=== PATIENT | male | born 1955 | race African-American/Black ===

== ENCOUNTER 2016-06-14 11:32 | Emergency (ER) | payer OTHER ==
[~2016-06-14] VITALS: Ht 177.8 cm; Wt 77.1 kg
[2016-06-14] MEDS ORDERED: LANTUS SOL100 UNIT/1 SUBQ (11:55)
[2016-06-14] MEDS ORDERED: METFORMIN HCL1000 M1 ORAL (11:55)
[2016-06-14 12:00] VITALS: BP 134/85
[2016-06-14] MEDS ORDERED: Ketorolac 60mg Inj IM ONE (12:45)
[2016-06-14] MEDS ORDERED: IBUPROFEN600 MG ORAL (12:54)
[2016-06-14] MEDS ORDERED: ROBAXIN500 MG PO (12:54)
--- NOTE | 2016-06-14 12:54 | Emergency Room Report ---
History of Present Illness General Chief Complaint: Pain Source: Patient Present Illness HPI 61-year-old male presents emergency department complaining of 8/10 in severity lower back pain that radiates down into the right leg in a shooting fashion. Patient states he has a history of low back problems and has had multiple episodes in the past of sciatica which respond well to soma. Patient states that he was unable to get in with his PCP who typically prescribes him his medications so he presented here in to the emergency department. Patient denies recent trauma or fall. Patient states he has had episodes with these symptoms since 2015. Patient denies recent spinal procedure or history of neoplastic disease. Denies numbness tingling or loss of sensation or gross motor movements of the extremities, incontinence of bowel or bladder. Denies CP , Palpitations, LOC, AMS, dizziness, Changes in Vision, Sensation, paresthesias , or a sudden severe headache. Allergies: Coded Allergies: No Known Allergies (Unverified , 06/14/16) Patient History Past Medical History: see triage record Past Surgical History: none Pertinent Family History: none Immunizations: UTD Reviewed Nursing Documentation: PMH: Agreed, PSxH: Agreed Nursing Documentation-PMH Past Medical History: No History, Except For Hx Diabetes: Yes Review of Systems All Other Systems: negative except mentioned in HPI Physical Exam Vital Signs Date Time Temp Pulse Resp B/P Pulse Ox O2 Delivery O2 Flow Rate FiO2 06/14/16 11:52 98.1 81 20 134/85 97 Sp02 EP Interpretation: reviewed, normal General Appearance: no apparent distress, alert, GCS 15, non-toxic Head: normocephalic, atraumatic Eyes: bilateral eye PERRL, bilateral eye normal inspection ENT: hearing grossly normal, normal pharynx, no angioedema, normal voice Neck: full range of motion, supple/symm/no masses Respiratory: chest non-tender, lungs clear, normal breath sounds, speaking full sentences Cardiovascular #1: regular rate, rhythm, no edema Gastrointestinal: no rebound Rectal: deferred Genitourinary: normal inspection, no CVA tenderness Musculoskeletal: back normal, gait/station normal, normal range of motion - with pain exacerbated with forard flexion, no calf tenderness, tender - Mild Tenderness to palpation to paraspinal muscles of the lower back, no spinous process tenderness, no midline tenderness. Neurologic: alert, oriented x3, responsive, motor strength/tone normal, sensory intact, normal gait, speech normal Psychiatric: judgement/insight normal, memory normal, mood/affect normal, no suicidal/homicidal ideation Skin: normal color, no rash, warm/dry, well hydrated Lymphatic: no adenopathy Medical Decision Making PA Attestation Dr. Ojeda is my supervising Physician whom patient management has been discussed with. Diagnostic Impression: Primary Impression: Back pain with right-sided sciatica ER Course 61-year-old male presents emergency department complaining of 8/10 in severity lower back pain that radiates down into the right leg in a shooting fashion x 7 day(s) -multiple episodes with similar sx in the past. since 2015. no new trauma or injury. Ddx considered: epidural abscess, fracture, sprain/strain, meningitis, spinal chord injury. Vital signs reviewed and are WNL during ED visit. Pt. is afebrile with no signs of infection No new symptoms, and denies recent trauma. No saddle anesthesia noted, Pt. denies incontinence Neurovascular is intact ROM is limited due to pain * Mild Tenderness to palpation to paraspinal muscles of the lower back, no spinous process tenderness, no midline tenderness. *Pt. describes pain today as moderate and radiates across the lower back, and down the right leg. ORDERS: none warranted at this time. INTERVENTIONS: - 60mg IM Toradol -350mg Soma D/W Pt. that for further pain management is it recommended to consult PCP or a Chronic Pain management doctor. A provider who can safely prescribe controlled substances with close follow up. DISCHARGE: At this time pt. is stable for d/c to home. Will provide printed patient care instructions, and any necessary prescriptions. Care plan and follow up instructions have been discussed with the patient prior to discharge. Last Vital Signs Date Time Temp Pulse Resp B/P Pulse Ox O2 Delivery O2 Flow Rate FiO2 06/14/16 12:00 98.1 81 20 134/85 97 Disposition: HOME, SELF-CARE Condition: Stable Scripts Ibuprofen* (MOTRIN*) 600 Mg Tablet 600 MG ORAL THREE TIMES A DAY, #30 TAB 0 Refills Prov: Arabella Tyson P.A. 06/14/16 Methocarbamol* (ROBAXIN*) 500 Mg Tablet 500 MG PO TID, #21 TAB 0 Refills Prov: Arabella Tyson P.A. 06/14/16 [facility]errals[facility] (PCP) Patient Instructions: Sciatica, [id number] Additional Instructions: Take medications as directed. Follow up with PCP in 3-5 days Return sooner to ED if new symptoms occur, or current symptoms become worse. Do not drink alcohol, drive, or operate heavy machinery while taking Muscle Relaxer as this may cause drowsiness. - Please note that this Emergency Department Report was dictated using Ringpaygeospatial scientist technology software, occasionally this can lead to erroneous entry secondary to interpretation by the dictation equipment. Arabella Tyson Jun 14, 2016 12:54
[2016-06-14 13:02] VITALS: BP 134/85
== END 2016-06-14 13:02 | disposition home or self-care (01) ==
LOC: EMR 12:35
DX: M54.41 Lumbago with sciatica, right side (principal); E11.9 Type 2 diabetes mellitus without complications
CPT/HCPCS: 96372; 99284

== ENCOUNTER 2016-06-28 19:50 | Emergency (ER) | payer OTHER ==
[~2016-06-28] VITALS: Ht 177.8 cm; Wt 79.4 kg
[~2016-06-28 19:50] MED LIST: IBUPROFEN600 MG ORAL; LANTUS SOL100 UNIT/1 SUBQ; METFORMIN HCL1000 M1 ORAL; ROBAXIN500 MG PO
[2016-06-28] MEDS ORDERED: Norco 10mg/325mg tab ORAL ONE (21:30)
[2016-06-28] MEDS ORDERED: Ketorolac 60mg Inj IM ONE (21:30)
[2016-06-28] MEDS ORDERED: Lidocaine 1% MPF 10mg/ml 5ml ONE (21:56)
[2016-06-28 22:23] VITALS: BP 148/53
[2016-06-28 23:57] VITALS: BP 144/54
[2016-06-29] MEDS ORDERED: NORCO 5-325 TA1 EACH ORAL (00:39)
[2016-06-29] MEDS ORDERED: BACTRIM DS TAB1 EAC1 ORAL (00:39)
[2016-06-29] MEDS ORDERED: KEFLEX500 MG ORAL (00:39)
[2016-06-29] MEDS ORDERED: IBUPROFEN600 MG ORAL (00:39)
[2016-06-29 00:57] VITALS: BP 139/72
--- NOTE | 2016-06-29 04:59 | Emergency Room Report ---
History of Present Illness General Chief Complaint: Skin Rash/Abscess Source: Patient Present Illness HPI Patient reports that he was here recently for sciatic pain Now over the past 2 days he has noticed increased firmness and fullness to the left buttock area Patient had watched the video and has tried to squeeze the area However after the discomfort persisted patient presents to the ER Denies any fevers or chills denies any difficulty with bowel movement denies any fall or trauma , Allergies: Coded Allergies: No Known Allergies (Unverified , 06/14/16) Patient History Past Medical History: see triage record Pertinent Family History: none Reviewed Nursing Documentation: PMH: Agreed, PSxH: Agreed Nursing Documentation-PMH Hx Diabetes: Yes Review of Systems All Other Systems: negative except mentioned in HPI Physical Exam Vital Signs Date Time Temp Pulse Resp B/P Pulse Ox O2 Delivery O2 Flow Rate FiO2 06/28/16 20:33 100.2 119 20 97 Room Air 06/28/16 22:23 148/53 Sp02 EP Interpretation: reviewed, normal General Appearance: well appearing, no apparent distress Head: normocephalic, atraumatic Eyes: bilateral eye EOMI, bilateral eye PERRL ENT: hearing grossly normal, normal pharynx, TMs + canals normal, uvula midline Neck: full range of motion, supple, no meningismus, no bony tend Respiratory: lungs clear, normal breath sounds, no rhonchi, no respiratory distress, no retraction, no accessory muscle use Cardiovascular #1: normal peripheral pulses, regular rate, rhythm, no edema, no gallop, no JVD, no murmur Gastrointestinal: normal bowel sounds, non tender, soft, no mass, no organomegaly, non-distended, no guarding, no hernia, no pulsatile mass, no rebound Rectal: other - Patient has area of abscess on palpation, involving the left buttock area, there is an area that gets fairly close to the perirectal region on the left side, no obvious tracking into the rectal area however, no other involvement of the scrotal or perineal area Genitourinary: no CVA tenderness Neurologic: oriented x3, responsive, logistics associate III-XII nml as tested, motor strength/ tone normal, sensory intact Psychiatric: mood/affect normal Skin: other - As above Lymphatic: normal inspection, no adenopathy Procedures Incision and Drainage Incision and Drainage : Consent: Verbal Site: Left perirectal/buttock area Blade Size: 11 I & D Procedure: betadine prep, sterile drapes applied, sterile dressing applied, gauze wick placed Wound Location: other - buttock Wound's Depth, Shape: into muscle Wound Length (cm): 1 Irrigated w/ Saline (ccs): 100 Anesthesia: 1% Lidocaine Volume Anesthetic (ccs): 5 Patient Tolerated: Well Complications: None Progress After initial incision with 11 blade, we did open several pockets of pus with forceps, there was significant discharge, after irrigation patient had packing placed into the area, and the area was just appropriately Medical Decision Making Diagnostic Impression: Primary Impression: Abscess Additional Impression: Encounter for incision and drainage procedure ER Course Patient was given IM antibiotics The area is concerning given the location and also the proximity to the perirectal area Incision and drainage was performed in the ER And the patient will have initial conservative outpatient trial I did discuss with him regarding the need for close followup, and further intervention if this does not fully resolved the problem , Last Vital Signs Date Time Temp Pulse Resp B/P Pulse Ox O2 Delivery O2 Flow Rate FiO2 06/29/16 00:57 99.2 90 20 139/72 98 Room Air Status: improved Disposition: HOME, SELF-CARE Condition: Improved Scripts Hydrocodone Bit/Acetaminophen 5-325* (NORCO 5-325*) 1 Each Tablet 1 TAB ORAL Q6H Y for For Pain, #10 TAB 0 Refills Prov: DAMON STINSON.O. 06/29/16 Ibuprofen* (MOTRIN*) 600 Mg Tablet 600 MG ORAL Q8H Y for For Pain, #30 TAB 0 Refills Prov: DAMON STINSON.O. 06/29/16 Trimethoprim/Sulfamethoxazole 160/800* (BACTRIM DS TABLET*) 1 Each Tablet 1 TAB ORAL Q12H, #14 TAB 0 Refills Prov: DAMON STINSON D.O. 06/29/16 Cephalexin* (KEFLEX*) 500 Mg Capsule 500 MG ORAL Q6H, #28 CAP 0 Refills Prov: DAMON STINSON.O. 06/29/16 Referrals: [facility] (PCP) Patient Instructions: Abscess Additional Instructions: Patient is provided with the discharge instructions notified to follow up with primary doctor in the next 2-3 days otherwise return to the er with any worsening symptoms. Please note that this report is being documented using DRAGON technology. This can lead to erroneous entry secondary to incorrect interpretation by the dictating instrument. DAMON STINSON D.O. Jun 29, 2016 04:59
== END 2016-06-29 01:00 | disposition home or self-care (01) ==
LOC: EMR 21:53
DX: L02.31 Cutaneous abscess of buttock (principal); E11.9 Type 2 diabetes mellitus without complications
CPT/HCPCS: 10060; 96372; 99284; J0696

== ENCOUNTER 2016-07-01 13:57 | Emergency (ER) | payer OTHER ==
[~2016-07-01] VITALS: Ht 177.8 cm; Wt 79.4 kg
[~2016-07-01 13:57] MED LIST changes: +BACTRIM DS TAB1 EAC1 ORAL; +KEFLEX500 MG ORAL; +NORCO 5-325 TA1 EACH ORAL
[2016-07-01 14:09] VITALS: BP 151/69
[2016-07-01] MEDS ORDERED: TYLENOL EXTRA500 MG ORAL (14:56)
--- NOTE | 2016-07-01 14:56 | Emergency Room Report ---
History of Present Illness General Chief Complaint: Skin Rash/Abscess Source: Patient Present Illness HPI 61-year-old male presents emergency department for wound recheck and that may need packing removal. pt. states provider who placed packing stated that " it may fall out on its own" Patient states he had incision and drainage of the left buttocks done 3 days ago and was told to report back for asking removal. Pt reports 7/10 pain described as swollen discomfort in the area exacerbated with sitting on wound. denies discharge denies erythema patient states he's been taking antibiotics as prescribed. Denies fevers chills or worsening of previous symptoms . Denies CP, Palpitations, LOC, AMS, dizziness, Changes in Vision, Sensation, paresthesias, or a sudden severe headache. Allergies: Coded Allergies: No Known Allergies (Unverified , 06/14/16) Patient History Past Medical History: see triage record Past Surgical History: none Pertinent Family History: none Immunizations: UTD Reviewed Nursing Documentation: PMH: Agreed, PSxH: Agreed Nursing Documentation-PMH Past Medical History: No History, Except For Hx Diabetes: Yes Review of Systems All Other Systems: negative except mentioned in HPI Physical Exam Vital Signs Date Time Temp Pulse Resp B/P Pulse Ox O2 Delivery O2 Flow Rate FiO2 07/01/16 14:09 98.1 80 16 151/69 99 Room Air Sp02 EP Interpretation: reviewed, normal General Appearance: no apparent distress, alert, GCS 15, non-toxic Head: normocephalic, atraumatic Eyes: bilateral eye PERRL, bilateral eye normal inspection ENT: hearing grossly normal, normal pharynx, no angioedema, normal voice Neck: full range of motion, supple/symm/no masses Respiratory: lungs clear, normal breath sounds, speaking full sentences Cardiovascular #1: regular rate, rhythm, no edema Gastrointestinal: non tender, soft, no guarding, no rebound Rectal: deferred Musculoskeletal: back normal, gait/station normal, normal range of motion, non- tender, no calf tenderness Neurologic: alert, oriented x3, responsive, motor strength/tone normal, sensory intact, speech normal Psychiatric: judgement/insight normal, memory normal, mood/affect normal, no suicidal/homicidal ideation Skin: normal color, no rash, warm/dry, well hydrated, wd healing/no infection noted - no evidence of wound packing. Lymphatic: no adenopathy Medical Decision Making PA Attestation Dr. Negro is my supervising Physician whom patient management has been discussed with. Diagnostic Impression: Primary Impression: Encounter for wound re-check ER Course Pt. presents to the ED c/o wound re-evaluation that may need packing removal. pt. states provider who placed packing stated that " it may fall out on its own " .... Ddx considered but are not limited to cellulitis, abscess, cystic acne, necrotizing fasciitis, insect bite. Vital signs: are WNL, pt. is afebrile H&PE are most consistent with healing previouisly incised abscess. ORDERS: none required at this time, the diagnosis is clinical ED INTERVENTIONS: -Toradol IM -wound packing is not present, d/w pt that packing has already been removed. -Sterile dressing applied. d/w pt. to continue taking po abx and to look for signs of infection . DISCHARGE: At this time pt. is stable for d/c to home. Will provide printed patient care instructions, and any necessary prescriptions. Care plan and follow up instructions have been discussed with the patient prior to discharge. Last Vital Signs Date Time Temp Pulse Resp B/P Pulse Ox O2 Delivery O2 Flow Rate FiO2 07/01/16 14:09 98.1 76 16 151/69 99 Room Air Disposition: HOME, SELF-CARE Condition: Stable Scripts Acetaminophen* (TYLENOL EXTRA STRENGTH*) 500 Mg Tablet 500 MG ORAL Q8H, #30 TAB 0 Refills Prov: Arabella Tyson 07/01/16 Patient Instructions: Wound Check Additional Instructions: Take previously prescribed medications as directed. Follow up with PCP in 3-5 days Return sooner to ED if new symptoms occur, or current symptoms become worse. - Please note that this Emergency Department Report was dictated using Grabilityteacher dramatics technology software, occasionally this can lead to erroneous entry secondary to interpretation by the dictation equipment. Arabella Tyson Jul 01, 2016 14:55
[2016-07-01] MEDS ORDERED: Ketorolac 60mg Inj IM ONE (15:00)
[2016-07-01 15:10] VITALS: BP 151/69
== END 2016-07-01 15:10 | disposition home or self-care (01) ==
LOC: EMR 14:25
DX: L02.31 Cutaneous abscess of buttock (principal); Z48.01 Encounter for change or removal of surgical wound dressing; E11.9 Type 2 diabetes mellitus without complications
CPT/HCPCS: 96372; 99283

== ENCOUNTER 2016-11-24 03:24 | Emergency (ER) | payer OTHER ==
[~2016-11-24] VITALS: Ht 177.8 cm; Wt 82.6 kg
[~2016-11-24 03:24] MED LIST changes: +TYLENOL EXTRA500 MG ORAL
[2016-11-24 03:30] VITALS: BP 166/75
[2016-11-24] MEDS ORDERED: BACTRIM DS TAB1 EAC1 ORAL (03:52)
[2016-11-24] MEDS ORDERED: KEFLEX500 MG ORAL (03:52)
[2016-11-24] MEDS ORDERED: Ketorolac 60mg Inj IM ONE (04:00)
[2016-11-24 04:07] VITALS: BP 166/70
--- NOTE | 2016-11-24 04:07 | Emergency Room Report ---
History of Present Illness General Chief Complaint: Skin Rash/Abscess Source: Patient Present Illness HPI 61YOM [employer] patient with "ball under my left buttock" for 2-3 days. States had abscess there previously Wants it "cut open again." Denies fever/chills, rectal bleeding, rectal pain, pus from rectum, pain/ swelling to perineum, urinary complaints Diabetic Allergies: Coded Allergies: No Known Allergies (Unverified , 06/14/16) Patient History Past Medical History: DM Past Surgical History: none Pertinent Family History: none Social History: Denies: alcohol use, drug use, smoking Immunizations: UTD Reviewed Nursing Documentation: PMH: Agreed, PSxH: Agreed Nursing Documentation-PMH Hx Diabetes: Yes Review of Systems All Other Systems: negative except mentioned in HPI Physical Exam Vital Signs Date Time Temp Pulse Resp B/P Pulse Ox O2 Delivery O2 Flow Rate FiO2 11/24/16 03:33 98.1 108 16 166/70 98 Room Air Sp02 EP Interpretation: reviewed, abnormal General Appearance: normal inspection, well appearing, no apparent distress, alert, GCS 15, non-toxic Head: normocephalic, atraumatic Eyes: bilateral eye EOMI, bilateral eye PERRL ENT: normal ENT inspection, hearing grossly normal, normal voice Neck: normal inspection, full range of motion, supple, no bony tend Respiratory: normal inspection, lungs clear, normal breath sounds, no respiratory distress, no retraction, no wheezing Cardiovascular #1: regular rate, rhythm, no edema Gastrointestinal: normal inspection, normal bowel sounds, non tender, soft, no guarding, no hernia Genitourinary: no CVA tenderness Musculoskeletal: normal inspection, back normal, normal range of motion, Lima' s Sign negative Neurologic: normal inspection, alert, oriented x3, responsive, union organiser III-XII nml as tested, motor strength/tone normal, speech normal Psychiatric: normal inspection, judgement/insight normal, mood/affect normal Skin: other - There is a 2cm area of induration just lateral to left buttock near midline. No fluctuance or abscess. No rectal involvement. No fourniers gangrene of perineum. Medical Decision Making Diagnostic Impression: Primary Impression: Cellulitis Qualified Codes: L03.317 - Cellulitis of buttock ER Course Cellulitis of left buttock - VS tachycardic likely d/t pain - No abscess at this point - Rx Keflex/bactrim given history of DM - PMD followup as needed DC home Last Vital Signs Date Time Temp Pulse Resp B/P Pulse Ox O2 Delivery O2 Flow Rate FiO2 11/24/16 03:33 98.1 108 16 166/70 98 Room Air Status: improved Disposition: HOME, SELF-CARE Condition: Improved Scripts Trimethoprim/Sulfamethoxazole 160/800* (BACTRIM DS TABLET*) 1 Each Tablet 1 TAB ORAL Q12H for 7 Days, #14 TAB 0 Refills Prov: BUDDY SOLIZ M.D. 11/24/16 Cephalexin* (KEFLEX*) 500 Mg Capsule 500 MG ORAL Q6H for 7 Days, #28 CAP 0 Refills Prov: BUDDY SOLIZ M.D. 11/24/16 Referrals: [facility] (PCP) Patient Instructions: Cellulitis, [id number] Additional Instructions: - Take both antibiotics until finished to treat cellulitis of left lower buttock BUDDY SOLIZ M.D. Nov 24, 2016 04:07
[2016-11-25] MEDS ORDERED: NORCO 5-325 TA1 EACH ORAL (03:56)
[2016-11-25] MEDS ORDERED: COLACE100 MG ORAL (03:58)
== END 2016-11-24 04:07 | disposition home or self-care (01) ==
LOC: EMR 03:43
DX: L02.31 Cutaneous abscess of buttock (principal); E11.9 Type 2 diabetes mellitus without complications
CPT/HCPCS: 96372; 99284

== ENCOUNTER 2016-11-25 02:52 | Emergency (ER) | payer OTHER ==
[~2016-11-25] VITALS: Ht 177.8 cm; Wt 83.9 kg
--- NOTE | 2016-11-25 02:56 | Emergency Room Report ---
History of Present Illness General Chief Complaint: To Be Triaged Source: Patient Present Illness HPI [id number] here for 2nd night in row again with pain to left buttock area Did fill Rx given to him yesterday and took multiple doses without improvement Now stating pain with defecation d/t pressure he feels there Denies pain, swelling to perineum Denies fever/chills, urinary complaints Allergies: Coded Allergies: No Known Allergies (Unverified , 11/25/16) Patient History Past Medical History: DM Past Surgical History: none Pertinent Family History: none Social History: Denies: alcohol use, drug use, smoking Immunizations: UTD Reviewed Nursing Documentation: PMH: Agreed, PSxH: Agreed Nursing Documentation-PMH Hx Diabetes: Yes Review of Systems All Other Systems: negative except mentioned in HPI Physical Exam Sp02 EP Interpretation: reviewed, normal General Appearance: normal inspection, well appearing, no apparent distress, alert, GCS 15, non-toxic Head: normocephalic, atraumatic Eyes: bilateral eye EOMI, bilateral eye PERRL ENT: normal ENT inspection, hearing grossly normal, normal voice Neck: normal inspection, full range of motion, supple, no bony tend Respiratory: normal inspection, lungs clear, normal breath sounds, no respiratory distress, no retraction, no wheezing Cardiovascular #1: regular rate, rhythm, no edema Gastrointestinal: normal inspection, normal bowel sounds, non tender, soft, no guarding, no hernia Rectal: normal rectal tone, other - Left krystyna-rectal area: no overlying erythema. 2cm area of induration. Not involving rectal muscle. No crepitus. No ttp of perineum or scrotum. Genitourinary: no CVA tenderness Musculoskeletal: normal inspection, back normal, normal range of motion, Lima' s Sign negative Neurologic: normal inspection, alert, oriented x3, responsive, corporate buyer III-XII nml as tested, speech normal Psychiatric: normal inspection, judgement/insight normal, mood/affect normal Skin: other Procedures Incision and Drainage Incision and Drainage : Consent: Verbal I & D Procedure: betadine prep, sterile drapes applied, sterile dressing applied, gauze wick placed Wound Location: other - left krystyna-rectal area Wound's Depth, Shape: superficial Wound Explored: clean Anesthesia: Lidocaine w/ Epi Splint Applied?: No Sling Applied?: No Patient Tolerated: Well Complications: None Progress Patient positioned prone Left krystyna-rectal area cleaned with alcohol preps Anesthetized with 1% lido with epi to 2 areas Cleaned again with betadine With just mild pressure, pus evacuated from area of where needle was used for anaesthesia About 12-15cc of pus evacuated from area. Pressure pushed on all areas of krystyna- rectum until all pus evacuated, until blood was seen Patient tolerated procedure wall Scalpel was NOT used Area covered with bandage and taped down Medical Decision Making Diagnostic Impression: Primary Impression: Perirectal abscess ER Course I&D of left krystyna-rectal abscess - see procedure note Afebrile. No systemic illness. No palpable crepitus to perineum Low suspicion for Donell gangrene at this time Advised to finish ALL Abx Has close PMD followup in 2-3 days Rx S[place]heimer with Colace as needed for pain DC home Status: improved Disposition: HOME, SELF-CARE Scripts Docusate Sodium* (COLACE*) 100 Mg Capsule 100 MG ORAL TWICE A DAY for 7 Days, #14 CAP Prov: BUDDY SOLIZ M.D. 11/25/16 Hydrocodone Bit/Acetaminophen 5-325* (NORCO 5-325*) 1 Each Tablet 1 TAB ORAL BID Y for For Pain for 7 Days, #14 TAB 0 Refills Prov: BUDDY SOLIZ M.D. 11/25/16 BUDDY SOLIZ M.D. Nov 25, 2016 02:56
[2016-11-25 03:17] VITALS: BP 179/89
[2016-11-25] MEDS ORDERED: Lidocaine 1% 10mg/ml/EPI 0.01mg/ml 50ml INJ ONE (03:45)
[2016-11-25] MEDS ORDERED: NORCO 5-325 TA1 EACH ORAL (03:56)
[2016-11-25] MEDS ORDERED: COLACE100 MG ORAL (03:58)
[2016-11-25 04:06] VITALS: BP 166/76
== END 2016-11-25 04:00 | disposition home or self-care (01) ==
LOC: EMR 03:16
DX: K61.1 Rectal abscess (principal); E11.9 Type 2 diabetes mellitus without complications
CPT/HCPCS: 10060

== ENCOUNTER 2016-12-21 20:26 | Emergency (ER) | payer OTHER ==
[~2016-12-21] VITALS: Ht 177.8 cm; Wt 79.4 kg
[~2016-12-21 20:26] MED LIST changes: +COLACE100 MG ORAL
[2016-12-21 21:15] VITALS: BP 140/76
[2016-12-21] MEDS ORDERED: Norco 10mg/325mg tab ORAL ONE (21:15)
[2016-12-21] MEDS ORDERED: Ketorolac 60mg Inj IM ONE (21:15)
--- NOTE | 2016-12-21 21:36 | Emergency Room Report ---
History of Present Illness General Chief Complaint: Lower Back Pain or Injury Source: Patient Present Illness HPI Patient presents with complaints of right low back pain He reports that he's been here several times with sciatica Denies any chest pain or shortness of breath Denies any vomiting or diarrhea Patient feels that the pain had exacerbated today Patient reports that he has exacerbations once in a while The initial report was pain to both legs however the patient complains of right- sided discomfort 6/10 denies any saddle paresthesia denies any focal weakness Allergies: Coded Allergies: No Known Allergies (Unverified , 11/25/16) Patient History Past Medical History: see triage record Pertinent Family History: none Reviewed Nursing Documentation: PMH: Agreed, PSxH: Agreed Nursing Documentation-PMH Past Medical History: No History, Except For Hx Hypertension: Yes Hx Diabetes: Yes Review of Systems All Other Systems: negative except mentioned in HPI Physical Exam Vital Signs Date Time Temp Pulse Resp B/P (MAP) Pulse Ox O2 Delivery O2 Flow Rate FiO2 12/21/16 20:48 98.2 97 16 140/76 98 Room Air Sp02 EP Interpretation: reviewed, normal General Appearance: well appearing, no apparent distress Head: normocephalic, atraumatic Eyes: bilateral eye PERRL, bilateral eye EOMI ENT: hearing grossly normal, normal pharynx, TMs + canals normal, uvula midline Neck: full range of motion, supple, no meningismus, no bony tend Respiratory: lungs clear, normal breath sounds, no rhonchi, no respiratory distress, no retraction, no accessory muscle use Cardiovascular #1: normal peripheral pulses, regular rate, rhythm, no edema, no gallop, no JVD, no murmur Gastrointestinal: normal bowel sounds, non tender, soft, no mass, no organomegaly, non-distended, no guarding, no hernia, no pulsatile mass, no rebound Genitourinary: no CVA tenderness Musculoskeletal: other - Patient has mild discomfort on palpation of the right posterior superior iliac crest region otherwise full mobility and sensory intact , Neurologic: oriented x3, responsive, predator control trapper III-XII nml as tested, motor strength/ tone normal, sensory intact Psychiatric: mood/affect normal Skin: normal color, no rash, warm/dry, palpation normal Lymphatic: normal inspection, no adenopathy Medical Decision Making Diagnostic Impression: Primary Impression: sciatica ER Course Multiple differentials considered, including but not limited to neurological, neurosurgical orthopedic pathology Patient is a fairly benign evaluation The patient's pain has improved with intervention here Review of cures reveals multiple medications filled by different providers Given the safety in prescription medication Patient was educated followup closely by primary physician for outpatient prescription Last Vital Signs Date Time Temp Pulse Resp B/P (MAP) Pulse Ox O2 Delivery O2 Flow Rate FiO2 12/21/16 21:15 98.2 16 140/76 98 Room Air 12/21/16 20:48 97 Status: improved Disposition: HOME, SELF-CARE Condition: Improved Patient Instructions: Back Pain, Adult, Sciatica, [id number] Additional Instructions: Patient is provided with the discharge instructions notified to follow up with primary doctor in the next 2-3 days otherwise return to the er with any worsening symptoms. Please note that this report is being documented using [employer] technology. This can lead to erroneous entry secondary to incorrect interpretation by the dictating instrument. DAMON STINSON D.O. Dec 21, 2016 21:36
== END 2016-12-21 21:15 | disposition home or self-care (01) ==
LOC: EMR 20:50
DX: M54.41 Lumbago with sciatica, right side (principal); I10 Essential (primary) hypertension; E11.9 Type 2 diabetes mellitus without complications
CPT/HCPCS: 96372; 99284

== ENCOUNTER 2017-10-18 00:26 | Emergency (ER) | payer OTHER ==
[~2017-10-18] VITALS: Ht 177.8 cm; Wt 85.3 kg
[2017-10-18 00:50] VITALS: BP 148/71
--- NOTE | 2017-10-18 00:51 | Emergency Room Report ---
History of Present Illness General Chief Complaint: Back Pain-No Injury Source: Patient Present Illness HPI The patient complains of increase in his of sciatica pain. He had colonoscopy yesterday. There is no abdominal pain.. He's run out of his Dierks. Denies any fever, incontinence, saddle numbness, blood thinners, oncologic problems. He does have a diabetic neuropathy and states that there is burning pain in both feet. He also complains about numbness there. Pain rated 8/10, aching, radiated down R leg. He states his blood sugars were 185 today. He controls this with medication. Decreased urine output felt to be related to colonoscopy prep. Allergies: Coded Allergies: No Known Allergies (Unverified , 11/25/16) Patient History Past Medical History: see triage record Social History: Reports: smoking Social History Narrative brought by sister Reviewed Nursing Documentation: PMH: Agreed; PSxH: Agreed Nursing Documentation-PMH Hx Hypertension: Yes Hx Diabetes: Yes Review of Systems All Other Systems: negative except mentioned in HPI Physical Exam Vital Signs Date Time Temp Pulse Resp B/P (MAP) Pulse Ox O2 Delivery O2 Flow Rate FiO2 10/18/17 00:34 98.0 70 18 152/72 95 Room Air 98.1 Sp02 EP Interpretation: reviewed, normal General Appearance: well appearing, no apparent distress, non-toxic Head: normocephalic, atraumatic Eyes: bilateral eye normal inspection, bilateral eye PERRL ENT: hearing grossly normal, normal voice, moist mucus membranes Neck: full range of motion, supple Respiratory: chest non-tender, lungs clear, no respiratory distress, speaking full sentences Cardiovascular #1: regular rate, rhythm Cardiovascular #2: 2+ radial (R), 2+ dorsalis pedis (R), 2+ dorsalis pedis (L) Gastrointestinal: normal inspection, non tender, soft, non-distended Musculoskeletal: gait/station normal, normal range of motion, no calf tenderness, other - SLR + R at 30 degrees radiating to R leg. Min crossover pain Neurologic: alert, motor strength/tone normal, DTRs symmetric, sensory intact, normal gait, speech normal Psychiatric: mood/affect normal Skin: no rash Medical Decision Making Diagnostic Impression: Primary Impression: Sciatica Qualified Codes: M54.31 - Sciatica, right side Additional Impression: Diabetes Qualified Codes: E11.42 - Type 2 diabetes mellitus with diabetic polyneuropathy ER Course Patient presents with increased back and sciatic pain post colonoscopy. DDx; exacerbation of chronic pain, complication of colonoscopy amongst others. Patient requests Rx for Dierks and declines other pain medication in ED. No urinary symptoms (aside from decreased urine output). Glucose controlled as reported by patient. No red flag signs or symptoms. Abdomen benign and doubt complication from colonoscopy at this time. No imaging or labs indicated at this time. No medical emergency. Patient stable for outpatient observation and treatment Last Vital Signs Date Time Temp Pulse Resp B/P (MAP) Pulse Ox O2 Delivery O2 Flow Rate FiO2 10/18/17 01:02 98.1 88 18 148/71 96 Room Air 98.1 Status: improved Disposition: HOME, SELF-CARE Condition: Improved Scripts Hydrocodone Bit/Acetaminophen 10-325* (NORCO 10-325*) 1 Each Tablet 1 TAB ORAL Q4H PRN for For Pain, #10 TAB 0 Refills PRN PAIN Prov: Luis Rice M.D. 10/18/17 Referrals: [facility],REFERRING (PCP) Luis Rice M.D. Oct 18, 2017 00:51
[2017-10-18] MEDS ORDERED: NORCO 10-325 T1 EACH ORAL (00:53)
[2017-10-18] MEDS ORDERED: HYDROcodone/Acetamin 10/325 tab ORAL ONE (01:00)
[2017-10-18 01:02] VITALS: BP 148/71
== END 2017-10-18 01:02 | disposition home or self-care (01) ==
LOC: EMR 00:45
DX: M54.31 Sciatica, right side (principal); E11.40 Type 2 diabetes mellitus with diabetic neuropathy, unspecified; I10 Essential (primary) hypertension
CPT/HCPCS: 99283

== ENCOUNTER 2017-11-26 16:12 | Emergency (ER) | payer OTHER ==
[~2017-11-26] VITALS: Ht 177.8 cm; Wt 83.9 kg
[~2017-11-26 16:12] MED LIST changes: +NORCO 10-325 T1 EACH ORAL
[2017-11-26 16:35] VITALS: BP 132/84
[2017-11-26] MEDS ORDERED: Ketorolac 30mg Inj IM ONE (16:45)
[2017-11-26] MEDS ORDERED: NORCO 5-325 TA1 EACH ORAL (17:00)
[2017-11-26 17:13] VITALS: BP 132/84
--- NOTE | 2017-11-26 18:01 | Emergency Room Report ---
History of Present Illness General Chief Complaint: Pain Source: Patient Present Illness HPI 62-year-old male presents ED complaining of back pain. History of sciatica. States symptoms got worse 2 days ago. Denies any recent injury. Pain is sharp , 10 out of 10, radiating down the right leg. States he normally comes here and gets a "shot" which helps his symptoms. Denies any bowel or bladder incontinence. Denies any motor weakness. No other aggravating relieving factors. Denies any other associated symptoms Allergies: Coded Allergies: No Known Allergies (Unverified , 11/25/16) Patient History Past Medical History: DM, HTN Past Surgical History: none Pertinent Family History: none Social History: Denies: smoking, alcohol use, drug use Immunizations: UTD Reviewed Nursing Documentation: PMH: Agreed; PSxH: Agreed Nursing Documentation-PMH Past Medical History: No History, Except For Hx Hypertension: Yes Hx Diabetes: Yes Review of Systems All Other Systems: negative except mentioned in HPI Physical Exam Vital Signs Date Time Temp Pulse Resp B/P (MAP) Pulse Ox O2 Delivery O2 Flow Rate FiO2 11/26/17 16:20 98.2 89 18 132/84 99 Room Air 98.2 Sp02 EP Interpretation: reviewed, normal General Appearance: no apparent distress, alert, GCS 15, non-toxic Head: normocephalic Eyes: bilateral eye normal inspection, bilateral eye PERRL ENT: normal ENT inspection Neck: normal inspection Respiratory: normal inspection Cardiovascular #1: normal inspection Gastrointestinal: normal inspection Rectal: deferred Genitourinary: no CVA tenderness, no vertebral tenderness Musculoskeletal: tender - paraspinal R lumbar tenderness Neurologic: alert, oriented x3, responsive, motor strength/tone normal, sensory intact, speech normal Psychiatric: normal inspection Skin: normal inspection Lymphatic: normal inspection Medical Decision Making Diagnostic Impression: Primary Impression: Sciatica Qualified Codes: M54.31 - Sciatica, right side ER Course Hospital Course 62-year-old male presents ED complaining of lower back pain. No evidence of trauma Differential diagnoses include: pyelonephritis, kidney stone, muscle strain, Lspine fracture Clinical course Patient placed on stretcher. After initial history and physical I ordered toradol for pain. Upon reassessment patient states pain has improved. Patient is safe for discharge. Patient does receive narcotic prescriptions on a monthly basis. Last prescription was one month ago. patient states she is being set up by his PMD with pain management. I agreed to provide him with short course of medication but explained that the ER is not an appropriate avenue for receiving these medications Diagnosis - sciatica Stable and discharged to home with prescription for [place]. Followup with PMD. Return to ED if symptoms recur or worsen Last Vital Signs Date Time Temp Pulse Resp B/P (MAP) Pulse Ox O2 Delivery O2 Flow Rate FiO2 11/26/17 17:13 98.2 84 18 132/84 99 Room Air 208.8 Status: improved Disposition: HOME, SELF-CARE Condition: Stable Scripts Hydrocodone Bit/Acetaminophen 5-325* (NORCO 5-325*) 1 Each Tablet 1 TAB ORAL Q6H PRN for For Pain, #10 TAB 0 Refills Prov: Jaime Wynn MD 11/26/17 Referrals: [facility]ERR[facility] (PCP) Patient Instructions: Sciatica, [id number] Jaime Wynn MD Nov 26, 2017 18:01
== END 2017-11-26 17:13 | disposition home or self-care (01) ==
LOC: EMR 17:10
DX: M54.30 Sciatica, unspecified side (principal); E11.9 Type 2 diabetes mellitus without complications; I10 Essential (primary) hypertension
CPT/HCPCS: 99283; J1885

== ENCOUNTER 2017-12-08 05:54 | Emergency (ER) | payer OTHER ==
[~2017-12-08] VITALS: Ht 177.8 cm; Wt 88.9 kg
[2017-12-08 06:12] VITALS: BP 141/80
[2017-12-08] MEDS ORDERED: MOBIC15 MG ORAL (06:13)
--- NOTE | 2017-12-08 06:14 | Emergency Room Report ---
History of Present Illness General Chief Complaint: Back Pain-No Injury Source: Patient, Medical Record Present Illness HPI Is a 62-year-old male with history of chronic back pain and states that he has sciatica on the right. He presents with chief complaint of lower back pain. No trauma. He's been here numerous times for the same thing. Gradual onset. Pain is 9 out of 10 going down the right leg. No incontinence of bowel or urine. No fever or chills. No other complaint. He said that he sees pain management and will get a refill for his [place] and toe next . Allergies: Coded Allergies: No Known Allergies (Unverified , 11/25/16) Patient History Past Medical History: see triage record, old chart reviewed Past Surgical History: other Pertinent Family History: none Social History: Denies: smoking Immunizations: other Reviewed Nursing Documentation: PMH: Agreed; PSxH: Agreed Nursing Documentation-PMH Hx Hypertension: Yes Hx Diabetes: Yes Review of Systems Eye: Denies: eye pain, blurred vision ENT: Denies: ear pain, nose congestion, throat swelling Respiratory: Denies: cough, shortness of breath Cardiovascular: Denies: chest pain, palpitations Gastrointestinal: Denies: abdominal pain, diarrhea, nausea, vomiting Musculoskeletal: Reports: back pain; Denies: joint pain Skin: Denies: rash Neurological: Denies: headache, numbness Endocrine: Denies: increased thirst, increased urine Hematologic/Lymphatic: Denies: easy bruising All Other Systems: negative except mentioned in HPI Physical Exam Vital Signs Date Time Temp Pulse Resp B/P (MAP) Pulse Ox O2 Delivery O2 Flow Rate FiO2 12/08/17 05:57 98.3 88 16 140/79 93 Room Air 98.2 vitals normal Sp02 EP Interpretation: reviewed, normal General Appearance: well appearing, no apparent distress, alert, other - Patient was resting comfortably sleeping with his arms crossed behind his head and legs crossed Head: normocephalic, atraumatic Eyes: bilateral eye PERRL, bilateral eye EOMI ENT: hearing grossly normal, normal pharynx Neck: full range of motion, supple, no meningismus Respiratory: chest non-tender, lungs clear, normal breath sounds Cardiovascular #1: regular rate, rhythm, no murmur Gastrointestinal: normal bowel sounds, non tender, no mass, no organomegaly, no bruit, non-distended Musculoskeletal: back normal, gait/station normal, normal range of motion Psychiatric: mood/affect normal Skin: warm/dry Medical Decision Making Diagnostic Impression: Primary Impression: Back pain Qualified Codes: M54.41 - Lumbago with sciatica, right side; G89.29 - Other chronic pain ER Course Patient with exacerbation of chronic back pain. No evidence of cauda equina syndrome, spinal epidural abscess or neoplastic process. On the [employer] system he has multiple prescription from different doctors for pain medication. I see no monthly prescription for [place]. Last Vital Signs Date Time Temp Pulse Resp B/P (MAP) Pulse Ox O2 Delivery O2 Flow Rate FiO2 12/08/17 05:57 98.3 88 16 140/79 93 Room Air 98.2 Status: improved Disposition: HOME, SELF-CARE Condition: Stable Scripts Meloxicam* (MOBIC*) 15 Mg Tablet 15 MG ORAL DAILY, #30 TAB 0 Refills Prov: JOSEPH JACOBSEN M.D. 12/08/17 Patient Instructions: Back Pain, Adult Additional Instructions: Follow-up with your pain management as scheduled next week. Return if symptom worsen. JOSEPH JACOBSEN M.D. Dec 08, 2017 06:14
[2017-12-08] MEDS ORDERED: Ketorolac 60mg Inj IM ONE (06:15)
[2017-12-08 06:30] VITALS: BP 141/80
== END 2017-12-08 06:30 | disposition home or self-care (01) ==
LOC: EMR 06:09
DX: M54.41 Lumbago with sciatica, right side (principal); E11.9 Type 2 diabetes mellitus without complications; I10 Essential (primary) hypertension
CPT/HCPCS: 96372; 99283

== ENCOUNTER 2017-12-13 13:31 | Emergency (ER) | payer OTHER ==
[~2017-12-13] VITALS: Ht 177.8 cm; Wt 88.9 kg
[~2017-12-13 13:31] MED LIST changes: +MOBIC15 MG ORAL
[2017-12-13 14:01] VITALS: BP 130/74
[2017-12-13] MEDS ORDERED: Ketorolac 30mg Inj IM ONE (14:15)
[2017-12-13] MEDS ORDERED: Norco 5mg/325mg tab ORAL ONE (14:15)
[2017-12-13] MEDS ORDERED: NAPROXEN250 M1 PO (14:15)
[2017-12-13] MEDS ORDERED: ROBAXIN500 MG PO (14:15)
--- NOTE | 2017-12-13 14:15 | Emergency Room Report ---
History of Present Illness General Chief Complaint: Back Pain-No Injury Source: Patient Present Illness HPI 62-year-old male patient presents ER complaining of low back pain and requesting pain medication. Patient has been previously seen in this ER multiple times for similar complaints. Reports history of sciatica and right sided low back pain that radiates to his leg. Denies bowel or bladder incontinence. Denies recent history of trauma. Requesting pain medication. 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 Denies fever, chest pain, shortness breath, dysuria, hematuria, abdominal pain. reports back pain has been present for over the past year. reports has taking gabapentin in the past without relief of symptoms. Allergies: Coded Allergies: No Known Allergies (Unverified , 11/25/16) Patient History Past Medical History: see triage record Reviewed Nursing Documentation: PMH: Agreed; PSxH: Agreed Nursing Documentation-PMH Past Medical History: No Stated History Hx Hypertension: Yes Hx Diabetes: Yes Review of Systems All Other Systems: negative except mentioned in HPI Physical Exam Vital Signs Date Time Temp Pulse Resp B/P (MAP) Pulse Ox O2 Delivery O2 Flow Rate FiO2 12/13/17 13:53 97.5 91 20 130/74 93 Room Air 97.5 Sp02 EP Interpretation: reviewed, normal General Appearance: well appearing, no apparent distress, alert, GCS 15, non- toxic Head: normocephalic, atraumatic Eyes: bilateral eye normal inspection, bilateral eye PERRL ENT: hearing grossly normal, normal pharynx, no angioedema, normal voice, uvula midline, moist mucus membranes Neck: full range of motion Respiratory: lungs clear, normal breath sounds, no rhonchi, no respiratory distress, no accessory muscle use, no wheezing, speaking full sentences Cardiovascular #1: regular rate, rhythm, no edema Gastrointestinal: non tender, soft, no mass, non-distended, no guarding, no rebound Genitourinary: deferred Musculoskeletal: back normal, digits/nails normal, gait/station normal, normal range of motion, non-tender, no calf tenderness Neurologic: alert, oriented x3, responsive, motor strength/tone normal, SLR negative, sensory intact Psychiatric: mood/affect normal Skin: no rash Medical Decision Making PA Attestation Dr. Rice is my supervising Physician whom patient management has been discussed with. Diagnostic Impression: Primary Impression: Chronic back pain Additional Impressions: Sciatica Drug-seeking behavior ER Course Pt presents to ED c/o back pain. DDX considered but are not limited to sprain, strain, cauda equine, epidural abscess, AAA, spinal cord compression, kidney stones. Low suspicion for cauda equina, no bowel or bladder incontinence or retention. No fever, nontoxic appearing, no radiation of pain, low suspicion for epidural mass. No abdominal pain, no blood pressure elevation, nontoxic appearing, low suspicion for AAA. VITAL SIGNS are WNL, patient is afebrile Ordered pain medication. ER COURSE: no spinous process tenderness, negative straight leg raise, no bony depression, does not require imaging at this time. Pain medication provided. Toradol and [place] provided in the ER. Patient states he is not driving himself home. CURES reviewed. multiple prescription prescriptions noted from multiple providers. patient is reported to the ER multiple times for similar complaints requesting further pain medication, informed him that ER will no longer provide him with pain medication. Informed patient that provide him with a single dose of pain medication here. Informed patient that he needs to follow up with his primary care provider to discuss proper pain management with medication. Discuss referral to pain management as needed. Will not provide him with narcotic prescription to go home with, patient reports understanding. ER precautions given. nontoxic appearing, ambulatory, discharged home. Followup with pain management and/or PT. Request referral from PCP. Followup with PCP for further MRI and/or CT imaging as needed. DISCHARGE: -Rx provided for naproxen. Patient states that Tylenol and ibuprofen don't work for him requesting naproxen medication. -Rx provided for Robaxin. SE may cause drowsiness, do not take prior to drinking , driving, or operating heavy machinery. At this time pt. is stable for d/c to home. At this time patient is resting comfortably, in no acute distress, nontoxic appearing, smiling and talking without difficulty. Will provide printed patient care instructions, and any necessary prescriptions. Patient instructed to follow with primary care provider for further treatment and referral as needed. Care plan and follow up instructions have been discussed with the patient prior to discharge. Patient reports understanding and agreement to treatment plan. Patient questions asked and answered. ER precautions given, patient instructed to return to ER immediately for any new or worsening of symptoms. - Please note that this Emergency Department Report was dictated using [employer]ocmachine shop worker technology software, occasionally this can lead to erroneous entry secondary to interpretation by the dictation equipment. Last Vital Signs Date Time Temp Pulse Resp B/P (MAP) Pulse Ox O2 Delivery O2 Flow Rate FiO2 12/13/17 14:01 97.5 20 130/74 93 Room Air 97.5 12/13/17 13:53 91 Disposition: HOME, SELF-CARE Condition: Stable Scripts Methocarbamol* (ROBAXIN*) 500 Mg Tablet 500 MG PO TID, #21 TAB 0 Refills Prov: Feliberto Banuelos 12/13/17 Naproxen (Naproxen) 250 Mg Tablet 250 MG PO BID, #30 TAB Prov: Feliberto Banuelos 12/13/17 Patient Instructions: Back Exercises, [id number], Back Pain, Adult, Sciatica Additional Instructions: Patient instructed to follow up with primary care provider 3-5 and discuss further referral and imaging at that time. Patient instructed on rest, ice and heat. Do not take muscle relaxant prior to drinking, driving, or operating heavy machinery. Take medications as directed. Patient questions asked and answered. ER precautions given, patient instructed to return to ER immediately for any new or worsening of symptoms. Feliberto Banuelos Dec 13, 2017 14:15
[2017-12-13 14:23] VITALS: BP 130/74
== END 2017-12-13 14:23 | disposition home or self-care (01) ==
LOC: EMR 14:13
DX: G89.29 Other chronic pain (principal); M54.40 Lumbago with sciatica, unspecified side; I10 Essential (primary) hypertension; E11.9 Type 2 diabetes mellitus without complications
CPT/HCPCS: 96372; 99283; J1885

== ENCOUNTER 2018-02-09 23:32 | Emergency (ER) | payer OTHER ==
[~2018-02-09] VITALS: Ht 177.8 cm; Wt 83.9 kg
[~2018-02-09 23:32] MED LIST changes: +NAPROXEN250 M1 PO
[2018-02-09 23:51] VITALS: BP 156/88
[2018-02-10] MEDS ORDERED: Ketorolac 30mg Inj IM ONE (00:15)
[2018-02-10 00:30] VITALS: BP 150/84
--- NOTE | 2018-02-10 01:16 | Emergency Room Report ---
History of Present Illness General Chief Complaint: Pain Source: Patient Present Illness HPI 62-year-old male presents ED for evaluation. Complaining of back pain 3 days. Pain is throbbing, 8 out of 10, radiating down the right leg. History of chronic back pain. Denies any bowel or bladder incontinence. Denies any leg or motor weakness. States that usually he gets a "shot" which helps his pain. States he has an appointment to see his primary care doctor next week. No other aggravating relieving factors. Denies any other associated symptoms Allergies: Coded Allergies: No Known Allergies (Unverified , 11/25/16) Patient History Past Medical History: DM, HTN Past Surgical History: none Pertinent Family History: none Social History: Denies: smoking, alcohol use, drug use Immunizations: UTD Reviewed Nursing Documentation: PMH: Agreed; PSxH: Agreed Nursing Documentation-PMH Hx Hypertension: Yes Hx Diabetes: Yes Review of Systems All Other Systems: negative except mentioned in HPI Physical Exam Vital Signs Date Time Temp Pulse Resp B/P (MAP) Pulse Ox O2 Delivery O2 Flow Rate FiO2 02/09/18 23:38 98.6 80 15 156/88 94 Room Air 98.6 Sp02 EP Interpretation: reviewed, normal General Appearance: no apparent distress, alert, GCS 15, non-toxic Head: normocephalic Eyes: bilateral eye normal inspection, bilateral eye PERRL ENT: normal ENT inspection Neck: normal inspection Respiratory: normal inspection Cardiovascular #1: normal inspection Gastrointestinal: normal inspection Rectal: deferred Genitourinary: no CVA tenderness Musculoskeletal: back normal, gait/station normal, normal range of motion, tender - paraspinal lumbar tenderness Neurologic: alert, oriented x3, responsive, motor strength/tone normal, sensory intact, speech normal Psychiatric: normal inspection Skin: normal inspection Lymphatic: normal inspection Medical Decision Making Diagnostic Impression: Primary Impression: Chronic back pain Qualified Codes: M54.41 - Lumbago with sciatica, right side; G89.29 - Other chronic pain Additional Impression: Drug-seeking behavior ER Course Hospital Course 62-year-old male presents ED complaining of lower back pain. h/o chronic back pain Differential diagnoses include: pyelonephritis, kidney stone, muscle strain, Lspine fracture Clinical course Patient placed on stretcher. After initial history and physical I ordered toradol for pain. Upon reassessment patient states pain has improved. Patient is requesting a prescription for [place], stating that he is not able to see his PMD until next week. I reviewed CURES patient has extensive narcotic prescriptions filled on a monthly basis. explained to the patient that I cannot provide him with a refill of his medication and he needs to see his PMD or pain management for this medication At this point patient became upset and left the emergency room without his discharge papers Diagnosis - chronic back pain , drug-seeking behavior Stable and discharged to home. Followup with PMD. Return to ED if symptoms recur or worsen Last Vital Signs Date Time Temp Pulse Resp B/P (MAP) Pulse Ox O2 Delivery O2 Flow Rate FiO2 02/10/18 00:13 98.6 02/09/18 23:51 80 15 156/88 94 Room Air Status: improved Disposition: HOME, SELF-CARE Condition: Stable Referrals: [facility] (PCP) Patient Instructions: Chronic Pain Jaime Wynn MD Feb 10, 2018 01:16
== END 2018-02-10 00:30 | disposition home or self-care (01) ==
LOC: EMR 23:57
DX: M54.9 Dorsalgia, unspecified (principal); G89.29 Other chronic pain; Z76.5 Malingerer [conscious simulation]
CPT/HCPCS: 96372; 99283; J1885

== ENCOUNTER 2018-09-17 00:35 | Emergency (ER) | payer OTHER ==
[~2018-09-17] VITALS: Ht 177.8 cm; Wt 87.1 kg
--- NOTE | 2018-09-17 00:39 | NUR ---
ED Nurse Note: called pt back to be triaged, pt was not present in waiting room
--- NOTE | 2018-09-17 00:50 | NUR ---
ED Nurse Note: pt came to ed from home c/o pain on the right hip due to fall. AO4. NAD
[2018-09-17 00:55] VITALS: BP 144/72
--- NOTE | 2018-09-17 01:03 | Emergency Room Report ---
History of Present Illness General Chief Complaint: Pain Source: Patient Present Illness HPI Is a 63-year-old male with a history of high blood pressure and diabetes. He presents with chief complaint of lower back pain. He claimed that he tripped and fell on his cane. Complaining of pain to the back and radiating down the right leg. The never had this problem before. Pain is 8 out of 10. No fever chills but no incontinence of bowel or urine. Worse with movement. Said he has no pain medication at home. Allergies: Coded Allergies: No Known Allergies (Unverified , 11/25/16) Patient History Past Medical History: see triage record, old chart reviewed, DM, HTN Past Surgical History: other Pertinent Family History: none Social History: Denies: smoking Immunizations: other Reviewed Nursing Documentation: PMH: Agreed; PSxH: Agreed Nursing Documentation-PM Past Medical History: No History, Except For Hx Hypertension: Yes Hx Diabetes: Yes Review of Systems Eye: Denies: eye pain, blurred vision ENT: Denies: ear pain, nose congestion, throat swelling Respiratory: Denies: cough, shortness of breath Cardiovascular: Denies: chest pain, palpitations Gastrointestinal: Denies: abdominal pain, diarrhea, nausea, vomiting Musculoskeletal: Reports: back pain; Denies: joint pain Skin: Denies: rash Neurological: Denies: headache, numbness Endocrine: Denies: increased thirst, increased urine Hematologic/Lymphatic: Denies: easy bruising All Other Systems: negative except mentioned in HPI Physical Exam Vital Signs Date Time Temp Pulse Resp B/P (MAP) Pulse Ox O2 Delivery O2 Flow Rate FiO2 09/17/18 00:41 97.9 86 16 98 Room Air 09/17/18 00:55 144/72 vitals unremarkable Sp02 EP Interpretation: reviewed, normal General Appearance: well appearing, no apparent distress, alert Head: normocephalic, atraumatic Eyes: bilateral eye PERRL, bilateral eye EOMI ENT: hearing grossly normal, normal pharynx Neck: full range of motion, supple, no meningismus Respiratory: chest non-tender, lungs clear, normal breath sounds Cardiovascular #1: regular rate, rhythm, no murmur Gastrointestinal: normal bowel sounds, non tender, no mass, no organomegaly, no bruit, non-distended Musculoskeletal: back normal - Diffuse pain. I see no evidence of any trauma. , gait/station normal, normal range of motion Psychiatric: mood/affect normal Skin: warm/dry Medical Decision Making Diagnostic Impression: Primary Impression: Drug-seeking behavior Additional Impressions: Back pain Qualified Codes: M54.41 - Lumbago with sciatica, right side Chronic back pain Qualified Codes: M54.41 - Lumbago with sciatica, right side; G89.29 - Other chronic pain ER Course Patient presents with back pain. He claimed that he tripped and fell and hitting his cane. He was using a cane and limping when he came in. He said he has no primary care Dr. no pain medication. On the [employer] system he has multiple narcotic prescriptions from multiple different doctors. When I point this out to him, he claimed that he has no doctor. Yet someone is prescribing his diabetes medication and blood pressure medication. He wanted a shot of pain medication. I offered Toradol. He became angry and started cussing at me. He got up and walk out of here without any difficulty. No longer having any limp. No longer needing to use his cane. Last Vital Signs Date Time Temp Pulse Resp B/P (MAP) Pulse Ox O2 Delivery O2 Flow Rate FiO2 09/17/18 00:55 97.9 86 16 144/72 98 Room Air Status: improved Disposition: HOME, SELF-CARE Condition: Stable Additional Instructions: follow-up with your doctor in 7 days. Return if worse. Don Lanier MD September 17, 2018 01:03
--- NOTE | 2018-09-17 01:06 | NUR ---
ER DISCHARGE NOTE: Patient is cleared to be discharged per ERMD, pt is aox4, on room air, with stable vital signs. pt was given dc and prescription instructions, pt was able to verbalize understanding, left without signing discharge papers, pt id band removed. pt is able to ambulate with steady gait. pt took all belongings.
[2018-09-17 01:09] VITALS: BP 144/72
[2018-09-17] MEDS ORDERED: Ketorolac 30mg Inj IM ONE (01:15)
== END 2018-09-17 01:05 | disposition home or self-care (01) ==
LOC: EMR 01:05
DX: M54.41 Lumbago with sciatica, right side (principal); G89.29 Other chronic pain; Z76.5 Malingerer [conscious simulation]; E11.9 Type 2 diabetes mellitus without complications; I10 Essential (primary) hypertension
CPT/HCPCS: 99282